=== PATIENT | female | born 1985 | race Caucasian/White ===

== ENCOUNTER → 2018-04-04 | Outpatient (CLI) | payer OTHER ==
[~2018-04-04] MED LIST: HYDR-389 PO; IBUP800T37 PO; LOR5/325 PO; MET2TH PO; NAPR220C12 PO; PNV1TABL70 PO
== END ==
LOC: LAB 14:30
PROVIDERS: ATTEND Student in an Organized Health Care Education/Training Program
DX: N64.3 Galactorrhea not associated with childbirth (principal)
CPT/HCPCS: 36415; 84146; 84443